=== PATIENT | male | born 1975 | race African-American/Black ===

== ENCOUNTER 2017-12-23 16:17 | Emergency (ER) | payer OTHER ==
[~2017-12-23] VITALS: Ht 172.7 cm; Wt 190.9 kg
[~2017-12-23 16:17] MED LIST: CATAPRES0.1 MG PO; CLONIDINE HCL0.1 MG PO; LEVOTHYROXINE100 MCG PO; LEVOTHYROXINE25 MCG PO; MOTRIN600 MG PO; NALTREXONE HCL50 MG PO; WELLBUTRIN XL300 MG PO; ZOLOFT50 MG PO
[2017-12-23 16:54] LABS: BASOPHIL (%) 0.3 % (0-1); BASOPHIL COUNT 0.1 K/uL (0-0.1); EOSINOPHIL (%) 0.5 % (0-5); EOSINOPHIL COUNT 0.1 K/uL (0-0.3); HEMOGLOBIN 14.8 G/DL (12.5-16.6); IMMATURE GRANULOCYTE (%) 1.1 % (0.0-0.7); LYMPHOCYTE (%) 12.8 % (15-42); LYMPHOCYTE COUNT 2.6 K/uL (1.0-2.8); MCHC 33.6 G/DL (30.0-36.0); MCV 89.1 FL (86-99); MONOCYTE (%) 4.9 % (3-12); NEUTROPHIL (%) 80.4 % (45-76); NEUTROPHIL COUNT 16.3 K/uL (1.8-6.4); PLATELET COUNT 161 K/uL (156-360); RBC DIS.WIDTH-CV 15.3 % (11.8-14.6); RBC DIS.WIDTH-SD 50.3 % (39-53); RED BLOOD COUNT 4.94 M/uL (4.00-5.50); WHITE BLOOD COUNT 20.3 K/uL (4.1-10.2)
[2017-12-23 17:06] LABS: CHLORIDE 104 mEq/L (99-109); POTASSIUM 3.4 mEq/L (3.7-5.4); SODIUM 139 mEq/L (136-147)
[2017-12-23 17:07] LABS: MAGNESIUM 2.4 mg/dL (1.3-2.7)
[2017-12-23 17:08] LABS: GLUCOSE 159 mg/dL (70-99)
[2017-12-23 17:11] LABS: SERUM ETHYL ALCOHOL 48 mg/dL
[2017-12-23 17:12] LABS: CREATININE 1.1 mg/dL (0.6-1.3); GFR ESTIMATE (CALCULATED) > 59 mL/min/ (58.99-99999)
[2017-12-23 17:14] LABS: UREA NITROGEN (BUN) 8 mg/dL (9-23)
[2017-12-23] MEDS ORDERED: NARCAN4 MG NS (20:52)
[2017-12-23 21:14] VITALS: BP 127/74
== END 2017-12-23 21:16 | disposition home or self-care (01) ==
LOC: EME 16:17
PROVIDERS: Emergency Medicine
DX: T40.1X1A Poisoning by heroin, accidental (unintentional), initial encounter (principal); F17.200 Nicotine dependence, unspecified, uncomplicated; I10 Essential (primary) hypertension; J45.909 Unspecified asthma, uncomplicated; F31.9 Bipolar disorder, unspecified; Z87.19 Personal history of other diseases of the digestive system
CPT/HCPCS: 71045; 80048; 83735; 85025; 99281; 99285; G0480